=== PATIENT | male | born 1985 | race Caucasian/White ===

== ENCOUNTER 2020-04-05 12:58 | Emergency (ER) | payer BC, OTHER | END 2020-04-05 15:30 | disposition home or self-care (01) | LOC: ER1 12:58 | DX: R10.32 Left lower quadrant pain (principal); Z53.20 Procedure and treatment not carried out because of patient's decision for unspecified reasons | CPT/HCPCS: 99283 ==

== ENCOUNTER → 2020-05-07 | Outpatient (CLI) | payer BC, OTHER | LOC: KOH-I 15:52 | DX: M25.552 Pain in left hip (principal); M54.42 Lumbago with sciatica, left side | CPT/HCPCS: 72100; 73522 ==